=== PATIENT | male | born 1965 ===

== ENCOUNTER 2016-10-11 10:08 | Emergency (ER) | payer OTHER ==
[2016-10-11 10:13] VITALS: BMI 22.1
[2016-10-11 10:35] VITALS: BP 116/73; PULSE 69; RESP 16; TEMP 98; O2SAT 98
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
--- NOTE | 2016-10-11 22:40 | CARD ---
APPROVED REPORT EKG Measurement Heart [id number] <Conclusion> Normal sinus rhythm Normal ECG
== END 2016-10-11 13:19 | disposition left against medical advice (07) ==
LOC: ED 10:08
DX: M54.2 Cervicalgia (principal)

== ENCOUNTER 2016-10-21 07:55 | Emergency (ER) | payer OTHER ==
[2016-10-21 07:56] VITALS: BMI 22.1
[2016-10-21 08:03] VITALS: TEMP 98; O2SAT 96
[2016-10-21] MEDS ORDERED: Morphine 2 mg/ml ISec IVP STA (08:08)
[2016-10-21 08:33] LABS: ADD MANUAL DIFF? NO
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
[2016-10-21 08:40] LABS: BASO # 0.03 K/mm3 (0.0-2.0); BASO % 0.5 % (0.0-3.0); EOS # 0.1 (0.0-0.7); EOS % 0.9 % (1.5-5.0); GRAN # 3.13 (1.4-6.5); GRAN % 49.1 % (50.0-68.0); HEMATOCRIT 41.5 % (42.0-52.0); LYMPH # 2.8 (1.2-3.4); LYMPH % 43.4 % (22.0-35.0); MEAN CELL VOLUME 90.6 fL (80.0-105.0); MEAN CORPUSCULAR HEMOGLOBIN 30.8 pg (25.0-35.0); MEAN PLATELET VOLUME 9.7 fl (7.0-11.0); MONO # 0.4 (0.1-0.6); MONO % 6.1 % (1.0-6.0); PLATELET COUNT 220 10^3/uL (120.0-450.0); RED CELL DISTRIBUTION WIDTH 13.3 % (11.5-14.5); WHITE BLOOD COUNT 6.4 10^3/ul (4.5-11.0)
[2016-10-21 08:49] LABS: ALB/GLOB RATIO 1.4 (1.1-1.8); ALKALINE PHOSPHATASE 72 U/L (38-133); ALT/SGPT 33 U/L (7-56); AST/SGOT 23 U/L (15-59); BILIRUBIN,TOTAL 0.3 mg/dL (0.2-1.3); BLOOD UREA NITROGEN 21 mg/dL (7-21); CALCIUM 9.3 mg/dL (8.4-10.5); CARBON DIOXIDE 28 mmol/L (21-33); CHLORIDE 105 mmol/L (98-107); GFR AFRICAN-AMERICAN > 60; GLUCOSE,RANDOM 137 mg/dL (70-110); SODIUM 141 mmol/L (132-148); TOTAL PROTEIN 7.2 g/dL (5.8-8.3)
[2016-10-21] MEDS ORDERED: Morphine 4 mg/ml ISec IVP STA (09:02)
--- NOTE | 2016-10-21 09:24 | RAD ---
PROCEDURE: Right Hand Radiographs. HISTORY: r/o fx (avulsion of nail) COMPARISON: None. FINDINGS: BONES: There is a crush type fracture of the tuft of the 2nd distal phalanx as well as an oblique fracture through the base of the distal phalanx. There is an extensive soft tissue injury JOINTS: Normal. No osteoarthritic changes. SOFT TISSUES: Normal. OTHER FINDINGS: None. IMPRESSION: There is a crush type fracture of the tuft of the 2nd distal phalanx as well as an oblique fracture through the base of the distal phalanx. There is an extensive soft tissue injury
[2016-10-21] MEDS ORDERED: Lidocaine 1% Inj (20ml) ONE (10:45)
[2016-10-21 12:34] VITALS: BP 110/78; PULSE 68; RESP 18
== END 2016-10-21 12:34 | disposition home or self-care (01) ==
LOC: ED 07:55
DX: S61.210A Laceration without foreign body of right index finger without damage to nail, initial encounter (principal); W31.2XXA Contact with powered woodworking and forming machines, initial encounter; Y93.89 Activity, other specified; Y92.89 Other specified places as the place of occurrence of the external cause; Y99.8 Other external cause status
CPT/HCPCS: 12001; 73140; 80053; 85025; 96365; 96375; 96376; 99284; J2270

== ENCOUNTER 2018-01-25 00:27 | Inpatient (IN) | payer OTHER ==
[2018-01-25] MEDS ORDERED: Sodium Chloride 0.9% 1,000 ML IV STA (00:45)
[2018-01-25] MEDS ORDERED: Morphine 4 mg/ml ISec IVP STA ×2 (00:45→04:00)
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
[2018-01-25 01:21] LABS: BASO # 0.04 K/mm3 (0.0-2.0); BASO % 0.4 % (0.0-3.0); EOS # 0.1 (0.0-0.7); EOS % 0.6 % (1.5-5.0); GRAN # 3.5 (1.4-6.5); GRAN % 38.5 % (50.0-68.0); HEMOGLOBIN 14.4 g/dL (14.0-18.0); LYMPH % 55.3 % (22.0-35.0); MEAN CELL VOLUME 87.5 fl (80.0-105.0); MEAN CORPUSCULAR HEMOGLOBIN 30.6 pg (25.0-35.0); MEAN PLATELET VOLUME 9.8 fl (7.0-11.0); MONO # 0.5 (0.1-0.6); MONO % 5.2 % (1.0-6.0); RBC 4.71 10^6/uL (3.5-6.1); RED CELL DISTRIBUTION WIDTH 13.2 % (11.5-14.5); WHITE BLOOD COUNT 9.1 10^3/ul (4.5-11.0)
[2018-01-25 01:31] LABS: ALB/GLOB RATIO 1.5 (1.1-1.8); ALBUMIN 4.4 g/dL (3.0-4.8); ALT/SGPT 29 U/L (7-56); AST/SGOT 29 U/L (17-59); BLOOD UREA NITROGEN 25 mg/dL (7-21); CALCIUM 9.9 mg/dL (8.4-10.5); GFR NON-AFRICAN AMERICAN 58; LIPASE 287 U/L (23-300)
[2018-01-25] MEDS ORDERED: Iohexol 350 MG/100 ML VIAL ONE (03:16)
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
[2018-01-25] MEDS: metroNIDAZOLE IV 500 mg/100 ml 500 MG/100 ML BAG IVPB SCH ×3 (06:19→21:12)
[2018-01-25] MEDS: Oxycodone/Acetaminophen 5/325 mg Tab PO PRN ×2 (06:36→20:27)
[2018-01-25] MEDS: Dextrose 5%/0.45% NS 1,000 ML IV SCH ×3 (06:37→21:12)
[2018-01-25 07:50] LABS: BASO # 0.03 K/mm3 (0.0-2.0); BASO % 0.3 % (0.0-3.0); EOS % 0.3 % (1.5-5.0); GRAN # 7.94 (1.4-6.5); GRAN % 80.2 % (50.0-68.0); HEMOGLOBIN 13.6 g/dL (14.0-18.0); LYMPH # 1.4 (1.2-3.4); LYMPH % 13.6 % (22.0-35.0); MEAN CELL VOLUME 88.1 fl (80.0-105.0); MEAN CORPUSCULAR HEMOGLOBIN 30.1 pg (25.0-35.0); MEAN CORPUSCULAR HGB CONC 34.2 g/dl (31.0-37.0); MEAN PLATELET VOLUME 9.8 fl (7.0-11.0); MONO # 0.6 (0.1-0.6); MONO % 5.6 % (1.0-6.0); RBC 4.52 10^6/uL (3.5-6.1); RED CELL DISTRIBUTION WIDTH 13.3 % (11.5-14.5); WHITE BLOOD COUNT 9.9 10^3/ul (4.5-11.0)
--- NOTE | 2018-01-25 08:39 | CT ---
Date of service: 01/25/2018 PROCEDURE: CT Abdomen and Pelvis with contrast HISTORY: Lt. sided abdominal pain x 1 hour COMPARISON: None. TECHNIQUE: Following the intravenous administration of iodinated contrast material, a CT examination of the abdomen and pelvis performed from the domes of the diaphragms to the symphysis pubis with reformatted datasets provided in axial, sagittal and coronal planes. Oral contrast was not administered as per referring physician request. Contrast dose: Omnipaque 350, 96 cc Radiation dose: Total exam DLP = 321.22 mGy-cm. This CT exam was performed using one or more of the following dose reduction techniques: Automated exposure control, adjustment of the mA and/or kV according to patient size, and/or use of iterative reconstruction technique. FINDINGS: LOWER THORAX: Limited bibasilar dependent atelectasis noted. LIVER: Liver appears upper limits normal size without focal mass evident. GALLBLADDER AND BILE DUCTS: Unremarkable. PANCREAS: Unremarkable. No gross lesion or ductal dilatation. SPLEEN: Unremarkable. ADRENALS: Unremarkable. No mass. KIDNEYS AND URETERS: Unremarkable. No hydronephrosis. No solid mass. VASCULATURE: Unremarkable. No aortic aneurysm. BOWEL: Stomach is distended with retained food and otherwise unremarkable appearing grossly. No bowel obstruction identified. Scattered limited retained fecal material seen in various large-bowel segments. Chain sutures are seen at the medial cecal base. Borderline mural thickening at the left hemicolon may indicate segmental colitis with limited pericolic stranding associated. No abscess or suspicious fluid collection. APPENDIX: Probable appendectomy. Clinically correlate nevertheless. No CT evidence of appendicitis. PERITONEUM: Unremarkable. No free fluid. No free air. LYMPH NODES: Unremarkable. No enlarged lymph nodes. BLADDER: Unremarkable. REPRODUCTIVE: Unremarkable. BONES: No acute fracture. OTHER FINDINGS: None. IMPRESSION: Potential segmental colitis affecting the left hemicolon. No abscess, diverticular change or free intra peritoneal gas. No ascites. Clinically correlate. Remainder the examination is unremarkable. Concordant preliminary report from [facility], 01/25/2018.
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
[2018-01-25] MEDS: levoFLOXacin 500 mg in D5W 500 MG/100 ML BAG IVPB SCH (09:58)
[2018-01-25] MEDS ORDERED: Ciprofloxacin 400mg/200ml D5W 400 MG/200 ML BAG IVPB SCH (10:00)
[2018-01-25 11:26] LABS: BASO # 0.02 K/mm3 (0.0-2.0); BASO % 0.2 % (0.0-3.0); EOS % 0.1 % (1.5-5.0); GRAN # 7.72 (1.4-6.5); GRAN % 79.4 % (50.0-68.0); HEMOGLOBIN 13.4 g/dL (14.0-18.0); LYMPH # 1.5 (1.2-3.4); LYMPH % 15.7 % (22.0-35.0); MEAN CELL VOLUME 87.8 fl (80.0-105.0); MEAN CORPUSCULAR HEMOGLOBIN 30.4 pg (25.0-35.0); MEAN CORPUSCULAR HGB CONC 34.6 g/dl (31.0-37.0); MEAN PLATELET VOLUME 9.5 fl (7.0-11.0); MONO # 0.5 (0.1-0.6); MONO % 4.6 % (1.0-6.0); RBC 4.41 10^6/uL (3.5-6.1); RED CELL DISTRIBUTION WIDTH 13.2 % (11.5-14.5); WHITE BLOOD COUNT 9.7 10^3/ul (4.5-11.0)
[2018-01-25 12:55] VITALS: BMI 23.3
[2018-01-25] MEDS ORDERED: Pneumococcal 23-Valent Vaccine IM ONE (12:55)
[2018-01-25 19:10] LABS: BASO # 0.02 K/mm3 (0.0-2.0); BASO % 0.2 % (0.0-3.0); EOS # 0.1 (0.0-0.7); EOS % 0.5 % (1.5-5.0); GRAN # 7.67 (1.4-6.5); GRAN % 70.5 % (50.0-68.0); HEMOGLOBIN 13.1 g/dL (14.0-18.0); LYMPH # 2.4 (1.2-3.4); LYMPH % 21.8 % (22.0-35.0); MEAN CORPUSCULAR HEMOGLOBIN 30.1 pg (25.0-35.0); MEAN CORPUSCULAR HGB CONC 34.2 g/dl (31.0-37.0); MEAN PLATELET VOLUME 9.7 fl (7.0-11.0); MONO # 0.8 (0.1-0.6); RBC 4.35 10^6/uL (3.5-6.1); RED CELL DISTRIBUTION WIDTH 13.3 % (11.5-14.5); WHITE BLOOD COUNT 10.9 10^3/ul (4.5-11.0)
[2018-01-26 01:33] LABS: BASO # 0.02 K/mm3 (0.0-2.0); BASO % 0.2 % (0.0-3.0); EOS # 0.1 (0.0-0.7); EOS % 0.5 % (1.5-5.0); GRAN # 6.1 (1.4-6.5); GRAN % 63.7 % (50.0-68.0); LYMPH % 30.8 % (22.0-35.0); MEAN CELL VOLUME 88.9 fl (80.0-105.0); MEAN CORPUSCULAR HGB CONC 33.7 g/dl (31.0-37.0); MEAN PLATELET VOLUME 9.7 fl (7.0-11.0); MONO # 0.5 (0.1-0.6); MONO % 4.8 % (1.0-6.0); RBC 4.34 10^6/uL (3.5-6.1); RED CELL DISTRIBUTION WIDTH 13.4 % (11.5-14.5); WHITE BLOOD COUNT 9.6 10^3/ul (4.5-11.0)
[2018-01-26] MEDS: metroNIDAZOLE IV 500 mg/100 ml 500 MG/100 ML BAG IVPB SCH (05:56)
[2018-01-26] MEDS: Oxycodone/Acetaminophen 5/325 mg Tab PO PRN (05:56)
[2018-01-26 08:13] LABS: BASO # 0.01 K/mm3 (0.0-2.0); BASO % 0.1 % (0.0-3.0); EOS # 0.1 (0.0-0.7); EOS % 0.7 % (1.5-5.0); GRAN # 5.56 (1.4-6.5); GRAN % 65.8 % (50.0-68.0); HEMOGLOBIN 13.2 g/dL (14.0-18.0); LYMPH # 2.4 (1.2-3.4); MEAN CELL VOLUME 89.6 fl (80.0-105.0); MEAN CORPUSCULAR HEMOGLOBIN 30.4 pg (25.0-35.0); MEAN CORPUSCULAR HGB CONC 33.9 g/dl (31.0-37.0); MEAN PLATELET VOLUME 9.8 fl (7.0-11.0); MONO # 0.5 (0.1-0.6); MONO % 5.4 % (1.0-6.0); RBC 4.34 10^6/uL (3.5-6.1); RED CELL DISTRIBUTION WIDTH 13.5 % (11.5-14.5); WHITE BLOOD COUNT 8.5 10^3/ul (4.5-11.0)
[2018-01-26 08:36] VITALS: BP 100/59; PULSE 61; RESP 20; TEMP 99; O2SAT 100
[2018-01-26 08:43] LABS: ALB/GLOB RATIO 1.3 (1.1-1.8); ALBUMIN 3.5 g/dL (3.0-4.8); ALT/SGPT 24 U/L (7-56); AST/SGOT 18 U/L (17-59); BLOOD UREA NITROGEN 10 mg/dL (7-21); GFR NON-AFRICAN AMERICAN > 60
--- NOTE | 2018-01-26 08:48 | CP.PCM.PN ---
Subjective - Date & Time of Evaluation Date of Evaluation: 01/26/18 Time of Evaluation: 08:00 - Subjective Subjective: GI Fellow PGY5 Progress Note Pt seen and examined at bedside, pt doing well, decreased abdominal pain. No BM but pt still straining and notices blood on wiping only. ROS: A 12pt ROS was negative except as above. Objective - Vital Signs/Intake and Output Vital Signs (last 24 hours): Temp Pulse Resp BP Pulse Ox 99 F 61 20 100/59 L 100 01/26/18 06:00 01/26/18 06:00 01/26/18 06:00 01/26/18 06:00 01/26/18 06:00 - Medications Medications: Current Medications Clonazepam (Klonopin) 1 mg PO HS ISABEL PRN Reason: Protocol Last Admin: 01/25/18 21:11 Dose: 1 mg Dextrose/Sodium Chloride (Dextrose 5%/0.45% Ns 1000 Ml) 1,000 mls @ 150 mls/hr IV .Q6H40M ISABEL Last Admin: 01/25/18 21:12 Dose: 150 mls/hr Metronidazole (Flagyl) 500 mg in 100 mls @ 100 mls/hr IVPB Q8 ISABEL PRN Reason: Protocol Last Admin: 01/26/18 05:56 Dose: 100 mls/hr Levofloxacin/Dextrose (Levaquin 500mg) 500 mg in 100 mls @ 100 mls/hr IVPB DAILY ISABEL PRN Reason: Protocol Last Admin: 01/25/18 09:58 Dose: 100 mls/hr Oxycodone/Acetaminophen (Percocet 5/325 Mg Tab) 1 tab PO Q4H PRN PRN Reason: Pain, severe (8-10) Stop: 01/28/18 05:45 Last Admin: 01/26/18 05:56 Dose: 1 tab - Labs Labs: 01/26/18 07:30 01/26/18 07:30 - Constitutional Appears: Non-toxic, No Acute Distress - Head Exam Head Exam: ATRAUMATIC, NORMAL INSPECTION, NORMOCEPHALIC - Eye Exam Eye Exam: EOMI, Normal appearance, PERRL Pupil Exam: PERRL - ENT Exam ENT Exam: Mucous Membranes Moist, Normal Exam - Neck Exam Neck Exam: Full ROM, Normal Inspection - Respiratory Exam Respiratory Exam: Clear to Ausculation Bilateral, NORMAL BREATHING PATTERN - Cardiovascular Exam Cardiovascular Exam: REGULAR RHYTHM - GI/Abdominal Exam GI & Abdominal Exam: Distended, Soft, Normal Bowel Sounds. absent: Firm, Rigid , Tenderness - Rectal Exam Rectal Exam: Deferred - Extremities Exam Extremities Exam: Full ROM, Normal Inspection - Neurological Exam Neurological Exam: Alert, Awake, Oriented x3 - Psychiatric Exam Psychiatric exam: Normal Affect, Normal Mood - Skin Skin Exam: Dry, Intact, Normal Color, Warm Assessment and Plan - Assessment and Plan (Free Text) Assessment: This is a 52yM presenting with abdominal pain and one episode of rectal bleeding. 1. Abdominal pain 2. Colitis 3. Rectal bleeding Plan: -Continue supportive care with pain control and anti-emetics -Advance to regular diet -Colitis from infectious colitis vs hemorrhoids from straining -Recommend miralax to prevent constipation -CT imaging reviewed with thickening of left side -Can change to po abx to complete total 14day course -Probiotics -Stool infectious pending -Hgb stable -Pt will need outpt colonoscopy in 6-8 weeks -No plan for any endoscopic evaluation at this time -From GI perspective pt okay for discharge home today on po abx
[2018-01-26] MEDS: levoFLOXacin 500 mg in D5W 500 MG/100 ML BAG IVPB SCH (10:14)
--- NOTE | 2018-01-26 11:41 | CP.PCM.DIS ---
Provider - Provider Date of Admission: 01/25/18 04:36 Attending physician: Nick Be Primary care physician: Maribell Sifuentes MD Hospital Course - Lab Results Lab Results: Most Recent Lab Values WBC 8.5 10^3/ul (4.5-11.0) 01/26/18 07:30 RBC 4.34 10^6/uL (3.5-6.1) 01/26/18 07:30 Hgb 13.2 g/dL (14.0-18.0) L 01/26/18 07:30 Hct 38.9 % (42.0-52.0) L 01/26/18 07:30 MCV 89.6 fl (80.0-105.0) 01/26/18 07:30 MCH 30.4 pg (25.0-35.0) 01/26/18 07:30 MCHC 33.9 g/dl (31.0-37.0) 01/26/18 07:30 RDW 13.5 % (11.5-14.5) 01/26/18 07:30 Plt Count 197 10^3/uL (120.0-450.0) 01/26/18 07:30 MPV 9.8 fl (7.0-11.0) 01/26/18 07:30 Gran % 65.8 % (50.0-68.0) 01/26/18 07:30 Lymph % (Auto) 28.0 % (22.0-35.0) 01/26/18 07:30 [place] % (Auto) 5.4 % (1.0-6.0) 01/26/18 07:30 Eos % (Auto) 0.7 % (1.5-5.0) L 01/26/18 07:30 Baso % (Auto) 0.1 % (0.0-3.0) 01/26/18 07:30 Gran # 5.56 (1.4-6.5) 01/26/18 07:30 Lymph # (Auto) 2.4 (1.2-3.4) 01/26/18 07:30 [place] # (Auto) 0.5 (0.1-0.6) 01/26/18 07:30 Eos # (Auto) 0.1 (0.0-0.7) 01/26/18 07:30 Baso # (Auto) 0.01 K/mm3 (0.0-2.0) 01/26/18 07:30 Sodium 141 mmol/L (132-148) 01/26/18 07:30 Potassium 4.2 mmol/L (3.6-5.0) 01/26/18 07:30 Chloride 107 mmol/L (98-107) 01/26/18 07:30 Carbon Dioxide 29 mmol/L (21-33) 01/26/18 07:30 Anion Gap 10 (10-20) 01/26/18 07:30 BUN 10 mg/dL (7-21) 01/26/18 07:30 Creatinine 1.0 mg/dl (0.8-1.5) 01/26/18 07:30 Est GFR ( Amer) > 60 01/26/18 07:30 Est GFR (Non-Af Amer) > 60 01/26/18 07:30 Random Glucose 110 mg/dL (70-110) 01/26/18 07:30 Calcium 9.0 mg/dL (8.4-10.5) 01/26/18 07:30 Phosphorus 3.3 mg/dL (2.5-4.5) 01/26/18 07:30 Magnesium 1.9 mg/dL (1.7-2.2) 01/26/18 07:30 Total Bilirubin 0.4 mg/dL (0.2-1.3) 01/26/18 07:30 AST 18 U/L (17-59) 01/26/18 07:30 ALT 24 U/L (7-56) 01/26/18 07:30 Alkaline Phosphatase 52 U/L (38-126) 01/26/18 07:30 Total Protein 6.3 g/dL (5.8-8.3) 01/26/18 07:30 Albumin 3.5 g/dL (3.0-4.8) 01/26/18 07:30 Globulin 2.8 gm/dL 01/26/18 07:30 Albumin/Globulin Ratio 1.3 (1.1-1.8) 01/26/18 07:30 Lipase 287 U/L (23-300) 01/25/18 00:53 Stool Occult Blood Positive (NEGATIVE) H 01/25/18 17:00 Stool Leukocytes, Qual Positive (NEGATIVE) H 01/25/18 Unknown Discharge Exam - Head Exam Head Exam: ATRAUMATIC, NORMAL INSPECTION, NORMOCEPHALIC Discharge Plan - Discharge Medications Prescriptions: Ciprofloxacin HCl [Cipro] 500 mg PO BID #12 tab Metronidazole [Flagyl] 500 mg PO TID #18 tablet Polyethylene Glycol 3350 [Miralax] 17 packet PO BID #14 ml - Follow Up Plan Condition: GOOD Disposition: HOME/ ROUTINE Referrals: Maribell Sifuentes MD [Primary Care Provider] -
== END 2018-01-26 17:28 | disposition home or self-care (01) | DRG 813 ==
LOC: ED 00:27 → ERH 04:36 → 5RSO 06:03
PROVIDERS: ADMIT Hospitalist; ATTEND Internal Medicine
DX: A09 Infectious gastroenteritis and colitis, unspecified (principal); K62.5 Hemorrhage of anus and rectum; K64.9 Unspecified hemorrhoids; F17.210 Nicotine dependence, cigarettes, uncomplicated; Z88.0 Allergy status to penicillin; Z80.0 Family history of malignant neoplasm of digestive organs

== ENCOUNTER 2018-08-19 10:39 | Emergency (ER) | payer OTHER ==
[2018-08-19 10:40] VITALS: BMI 23.3
[2018-08-19] MEDS ORDERED: TDAP Vaccine 0.5 mL Syr IM ONE (11:29)
[2018-08-19 11:30] VITALS: O2SAT 100
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
--- NOTE | 2018-08-19 12:43 | RAD ---
Date of service: 08/19/2018 PROCEDURE: <HAND RIGHT 3 VIEWS> HISTORY: hand crush injury COMPARISON: None. FINDINGS: BONES: There is an acute comminuted angulated displaced fracture in the neck of the 5th metacarpal with 1 shaft with medial displacement and dorsal angulation. JOINTS: The joint spaces are preserved. SOFT TISSUES: There is soft tissue swelling overlying the 5th metacarpal and gas in the soft tissue likely related to open wound. OTHER FINDINGS: None. IMPRESSION: Acute comminuted angulated displaced fracture in the neck of the 5th metacarpal with 1 shaft with medial displacement and dorsal angulation.
[2018-08-19 14:10] VITALS: BP 103/68; PULSE 70; RESP 16; TEMP 98.1
== END 2018-08-19 14:09 | disposition home or self-care (01) ==
LOC: ED 10:39
DX: S62.336A Displaced fracture of neck of fifth metacarpal bone, right hand, initial encounter for closed fracture (principal); W23.0XXA Caught, crushed, jammed, or pinched between moving objects, initial encounter; F17.210 Nicotine dependence, cigarettes, uncomplicated; Z23 Encounter for immunization

== ENCOUNTER 2018-10-12 09:29 | Emergency (ER) | payer OTHER ==
[2018-10-12 09:30] VITALS: BMI 23.3
[2018-10-12 09:54] VITALS: BP 106/74; PULSE 75; RESP 18; TEMP 98.8; O2SAT 99
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
[2018-10-12] MEDS ORDERED: Lidocaine 1% Inj (20ml) ONE (10:15)
[2018-10-12] MEDS ORDERED: Lidocaine 1% 5ml Abboject ONE (10:15)
[2018-10-12] MEDS ORDERED: Tmp-Smz 800 mg-160 mg DS Tab PO STA (10:34)
[2018-10-12] MEDS ORDERED: Bacitracin 500 Units/gm Oint Foilpak UD TOP ONE (10:34)
--- NOTE | 2018-10-12 12:33 | RAD ---
Date of service: 10/12/2018 PROCEDURE: Left Knee Radiographs. HISTORY: Pain. COMPARISON: None. TECHNIQUE: 2 views obtained. FINDINGS: BONES: Normal. No fracture. JOINTS: Normal. No osteoarthritis. JOINT EFFUSION: None. OTHER FINDINGS: None. IMPRESSION: Normal radiographs of the left knee.
== END 2018-10-12 11:56 | disposition home or self-care (01) ==
LOC: ED 09:29
DX: S81.822A Laceration with foreign body, left lower leg, initial encounter (principal); W31.89XA Contact with other specified machinery, initial encounter